=== PATIENT | female | born 1980 | race Caucasian/White ===

== ENCOUNTER 2016-08-16 11:03 | Emergency (ER) | payer OTHER ==
[~2016-08-16] VITALS: Ht 160 cm; Wt 72.7 kg
[2016-08-16 11:08] VITALS: BP 122/78; PULSE 80; RESP 14; O2SAT 98
--- NOTE | 2016-08-16 11:16 | ED.REPORT ---
HPI-Extremity Problem Upper Date of Service Aug 16, 2016 ED Provider: Andrés Gonzales MD 36 y/o female with no pertinent hx presents to the ED complaining of dull bilateral elbow pain, worse on the right for the past week. 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 She has been using a brace and icing the elbow but that has not significantly helped. Associated sx include numbness, tingling and a popping sound in her elbows. Her pain is currently 3/10 in severity and at 8/10 at its worst. The pt is a recovering drug and alcohol user and does not want narcotics. Nursing Notes Stated Complaint: JOINT PAIN Chief Complaint: Extremity Trauma Nursing Notes Reviewed: Yes Allergies: Coded Allergies: Penicillins (Verified Allergy, Intermediate, rash and itching and throat swelling, 08/16/16) General Time Seen by MD: 11:14 Chief Complaint Elbow injury right, Elbow injury left Hx Obtained From: Patient Arrived By: Walk-in Onset Occurred: 1 week ago Symptom Duration: Since onset Location: : Elbow right Quality: Painful Severity: Current: Pain level 3 out of 10 Severity: Maximum: Pain level 8 out of 10 Recent Healthcare: Recent doctor visit Similar Sx Previous: Yes Past Medical History Past Medical History none reported Past Surgical History Lipo Smoking History Current Some Day Smoker Social History Alcohol Use: In recovery Drug Use: In recovery Ambulatory Status Independent Review of Systems Reports: a popping sound in the elbows Musculoskeletal: Reports: Joint pain (elbows bilaterally, worse on the right. ) Neurologic: Reports: Numbness (elbows, worse on the right) Complete sys rev & neg: except as marked. Physical Exam Initial Vital Signs Vital Signs (First) Date Time Temp Pulse Resp B/P Pulse Ox O2 Delivery O2 Flow Rate FiO2 08/16/16 11:08 36.3 80 14 122/78 98 Room Air Initial VS: Reviewed Head / Eyes: Atraumatic, Normocephalic Respiratory: Breath sounds normal, Clear to auscultation, No respiratory distress Cardiovascular: Regular rate & rhythm, Heart sounds normal, Intact distal pulses Lower Extremities: Vascular intact, Neuro intact, No swelling, No tenderness Skin: Warm, Dry, No cyanosis Neurologic: Alert, Oriented, Nonfocal General/Constitutional: Awake, Alert, Cooperative Neck: Atraumatic, Supple, Full range of motion Upper Extremity / MS: No swelling, No deformity, Neurologic intact, Vascular intact Tender over right lateral condyle. Full active and passive rangle of motion of the elbow. No sign of injury. Good CAP refill. Neurologic: Oriented X3, Speech NL, No motor deficits, No sensory deficits ( sensation intact bilaterally) 5/5 proposal editor strenth bilaterally. Re-Eval/Medical Decision Med Decision/Clinical Course Patient is a generally healthy 36-year-old female who presents with bilateral elbow pain right greater than left in the setting of repetitive use as a precipitator operator. She is neurovascularly intact in both extremities without any evidence of redness, warmth, swelling, fever or signs suggestive of septic arthritis. She has had no acute traumatic injury and there is no evidence of fracture or dislocation. Presentation consistent with lateral epicondylitis in the setting of repetitive use. Recommend ice packs, ibuprofen, rest and follow- up with primary care physician. Patient given note for light duty at work. Patient additionally seen and evaluated by medical student Soham performed osteopathic manipulation which the patient responded well. Prior to discharge follow-up and return precautions were reviewed in detail with the patient who verbalized understanding and agreement with the plan. The patient was discharged in stable condition. Re-Evaluation/Progress : Time of Eval: 11:45 Patient Status: Condition improved Re-Evaluation/Progress Note: OMT performed by medical student. Pt feels significantly better after the treatment. Discussed diagnosis and plan to discharge. Pt understands and agrees with the plan. F/U instructions and RTER warning given. All questions addressed Counseled Regarding: Diagnosis, Need for follow-up, When/why to return to ED Discharge & Departure Impression: Primary Impression: Lateral epicondylitis Laterality: bilateral Qualified Code: M77.11 - Lateral epicondylitis, right elbow Additional Impression: Elbow pain, right Disposition: Home Discharge Condition All VS Reviewed: Yes Condition: Stable Additional Instructions: Thank you for seeking care at the emergency room.It is difficult for us to make definitive diagnoses in the ED but we believe that you are experiencing lateral epicondylitis.Our primary goal today in the ED was to evaluate you for any life-threatening conditions. Your evaluation was reassuring. You can take Ibuprofen for pain as needed. You may follow up with the residency clinic for OMT. You should follow-up with your primary doctor for further evaluation. You should return to the ED immediately if you develop any new or concerning symptoms Thank you for letting us partake in your care today. Referrals: [facility] Scribe Attestation Portions of this note were transcribed by Sammy Bailey. I, , personally performed the history, physical exam and medical decision-making;I reviewed and confirmed the accuracy of the information in the transcribed note. Signed by Lawrence Wray. 08/16/16 12:06 copies to: [facility] Andrés Gonzales MD Aug 16, 2016 11:16 Sammy Bailey Aug 16, 2016 11:35
[2016-08-16 12:25] VITALS: BP 113/74; PULSE 74; RESP 20; O2SAT 95
== END 2016-08-16 12:29 | disposition home or self-care (01) ==
LOC: SED 11:03
DX: M77.11 Lateral epicondylitis, right elbow (principal); M77.12 Lateral epicondylitis, left elbow; X50.1XXA Overexertion from prolonged static or awkward postures, initial encounter; Y93.89 Activity, other specified; Y92.019 Unspecified place in single-family (private) house as the place of occurrence of the external cause; Y99.8 Other external cause status; F17.200 Nicotine dependence, unspecified, uncomplicated; Z88.0 Allergy status to penicillin